=== PATIENT | male | born 1935 | race Caucasian/White ===

== ENCOUNTER 2023-10-04 08:43 | Outpatient (OUT) | payer MEDICARE, OTHER, SELFPAY ==
[2023-10-04 09:03] LABS: Basophils Percent Auto 0.2 % (0.2-2.0); Eosinophils Absolute Auto 0.1 10^3/uL (0.0-0.7); Eosinophils Percent Auto 1.3 % (0.9-7.0); Hematocrit 39.1 % (42.0-54.0); Hemoglobin 13.2 g/dL (14.0-18.0); Immature Granulocytes Abs Auto 0.01 10^3/uL (0.00-0.03); Immature Granulocytes Pct Auto 0.2 % (0.0-0.5); Lymphocytes Absolute Auto 1.3 10^3/uL (1.2-3.8); Lymphocytes Percent Auto 21.1 % (20.5-60.0); Mean Corpuscular HGB Conc 33.8 g/dL (29.9-35.2); Mean Corpuscular Hemoglobin 30.6 pg (25.9-34.0); Mean Corpuscular Volume 90.7 fL (80.0-94.0); Mean Platelet Volume 10.1 fL (9.5-13.5); Monocytes Absolute Auto 0.5 10^3/uL (0.3-0.8); Monocytes Percent Auto 8.6 % (1.7-12.0); Neutrophils Absolute Auto 4.2 10^3/uL (1.4-6.5); Neutrophils Percent Auto 68.6 % (43.0-75.0); Platelet Count 180 10^3/uL (150-450); Red Blood Count 4.31 10^6/uL (4.70-6.10); Red Cell Distribution Width 13.6 % (11.0-15.0); White Blood Count 6.2 10^3/uL (4.0-11.0)
--- NOTE | 2023-10-04 09:06 | CA_ITS ---
Patient Name: ESTEE EVANS MR#: [id number] : 1935 Exam Date: 10/04/2023 Ordering Doctor: DR Ramez De La Garza D.O. ECHOCARDIOGRAM REPORT PROCEDURE: CA ECHO DOPPLER COMPLETE INDICATIONS: Aortic valve stenosis COMPARISON: None. DESCRIPTION: COMPLETE ECHOCARDIOGRAM Real-time transthoracic echocardiography with 2D, M-mode, spectral and color flow Doppler performed. QUALITY: Technical quality was good. LEFT VENTRICLE: Normal chamber size. Moderate concentric left ventricular hypertrophy. Global left ventricular systolic function is normal. LV EF: Estimated left ventricular ejection fraction is 65-70%. DIASTOLIC: Grade 2 diastolic dysfunction. ATRIAL SEPTUM: LEFT ATRIUM: Moderate dilatation. RIGHT ATRIUM: Mild dilatation. RIGHT VENTRICLE: Normal chamber size. Normal right ventricular systolic function. TRICUSPID VALVE: Normal mobility and thickness. No stenosis with trivial regurgitation. Mild pulmonary hypertension. RVSP 39 mmHg MITRAL VALVE: Normal mobility and thickness. No evidence of mitral valve stenosis. Moderate mitral annular calcification. Mild mitral regurgitation. AORTIC VALVE: Normal trileaflet appearance. Moderately calcified aortic valve. Moderately diminished mobility. Doppler velocity suggests moderate aortic valve stenosis. DVI 0.3, ANTONIO 1.3 cm2, Vmax 3.4 m/s, Mean gradient 29 mmHg. Mild to moderate aortic regurgitation. AORTIC ROOT: Normal diameter and appearance. PULMONIC VALVE: Normal thickness and mobility. No stenosis. Trivial regurgitation. PERICARDIUM: No evidence of pericardial effusion. IVC: Collapses with inspirations. Normal size. PLEURA: CONCLUSION: 1. Moderate concentric left ventricular hypertrophy with normal systolic function. Estimated LVEF is 65 to 70%. 2. Normal right ventricular size and systolic function. 3. Grade 2 diastolic dysfunction. 4. Mild to moderate biatrial dilatation. 5. Moderate aortic valve stenosis with mild to moderate regurgitation. 6. Mildly elevated right-sided pressures. RVSP is 39 mmHg. Adult Echocardiography Procedure Report Left Ventricle LVEDD (3.7 - 5.6 cm): 4.57 cm LVESD (2.2 - 4.0 cm): 2.97 cm LVIVS thickness (0.6 - 1.2 cm): 1.49 cm LVPW thickness (0.5 - 1.0 cm): 1.35 cm e': 0.08 m/s E - e': 13.35 LVOT Max Gradient: 4.54 mm[Hg] LVOT Area (cm2): 1.07 m/s Peak Velocity (LVOT): 1.07 m/s Mean Velocity (LVOT): 0.76 m/s LVOT Diameter 2.31 cm Left Ventricular Ejection Fraction: 65-70 % Left Atrium LA Volume Index (2D A2C): 53.55 ml/m2 Left Atrium Systolic Dimension: 5.25 cm Mitral Valve MV E to A Ratio: 0.99, 0.86 Mitral Valve A-Wave Peak Velocity: 1.19 m/s Mitral Valve E-Wave Peak Velocity: 1.10 m/s Right Ventricle RV Internal Diastolic Dimension: 3.04 cm Aorta AO Root Diam: 3.11 cm Ascending Ao Diam: 3.29 cm Aortic Valve AoV Area (Peak Gagan): 1.40 cm2, 1.36 cm2 AoV Area (VTI): 1.55 cm2, 1.52 cm2 Deceleration Concho: 2.98 m/s2 Pressure Half-Time: 450.01 ms Peak Velocity(Antegrade Flow): 3.30 m/s, 2.90 m/s, 3.36 m/s Peak Gradient(Antegrade Flow): 43.44 mm[Hg], 33.59 mm[Hg], 45.29 mm[Hg] Mean Velocity(Antegrade Flow): 2.33 m/s, 1.96 m/s, 2.56 m/s Mean Gradient(Antegrade Flow): 24.57 mm[Hg], 17.65 mm[Hg], 28.52 mm[Hg] Velocity Time Integral: 85.56 cm, 69.42 cm, 95.83 cm Tricuspid Valve Peak Velocity (Regurgitant Flow): 2.66 m/s, 2.99 m/s, 2.61 m/s Pulmonic Valve Mean Gradient: 3.19 mm[Hg], 3.88 mm[Hg] Mean Velocity: 0.80 m/s, 0.90 m/s Peak Velocity: 1.35 m/s Peak Gradient: 7.06 mm[Hg], 7.50 mm[Hg] Right Atrium Right Atrium Systolic Pressure: 58.81 ml, 58.81 ml Dictated by: Omero Palomares M.D. on 10/05/2023 at 15:14 Approved by: Omero Palomares M.D. on 10/05/2023 at 15:19
--- NOTE | 2023-10-04 09:06 | US_ITS ---
[address] [address] Patient Name: ESTEE EVANS MRN: [id number] date: 1935 Sex: M Assigned Patient Location: LAB Current Patient Location: Accession/Order Number: [id number] Exam Date: 10/04/2023 09:10 Report Date: 10/05/2023 13:21 At the request of: GIORGI HAMPTON Procedure: US carotid duplex BI EXAMINATION: US carotid duplex BI HISTORY: Carotid Bruit COMPARISON: Ultrasound carotid artery bilateral 08/01/2019 TECHNIQUE: Duplex Doppler ultrasound analysis of carotid and vertebral arteries. . Bilateral carotid arterial duplex examination was performed using B-mode, color flow and spectral analysis. Carotid stenosis is reported according to validated velocity parameters, similar to NASCET criteria. FINDINGS: RIGHT CAROTID ARTERY: Marked atherosclerotic plaque within bulb and proximal ICA with 75% area reduction within the proximal ICA and 65% area reduction within the bulb. Subclavian: 293.61 cm/s / 13.98 cm/s CCA: Prox: 90.07 cm/s / 4.66 cm/s Mid: PSV: 77.13 cm/s cm/s EDV: 2.07 cm/s cm/s Distal: PSV: 64.19 cm/s cm/s EDV: 0 cm/s cm/s BULB: PSV: 113.37 cm/s cm/s EDV: 7.25 cm/s cm/s ICA: Prox: PSV: 121.41 cm/s cm/s EDV: 18.92 cm/s cm/s Mid: PSV: 97.34 cm/s cm/s EDV: cm/s 16.04 cm/s Distal: PSV: 61.08 cm/s cm/s EDV: 10.55 cm/s cm/s ECA: PSV: 79.74 cm/s cm/s EDV: 0 cm/s cm/s VERTEBRAL: PSV: 76.44 cm/s cm/s EDV: 11.64 cm/s cm/s ICA/CCA ratio: PSV: 1.3 EDV: 4.1 LEFT CAROTID ARTERY: Mild narrowing of proximal ICA with what appears to be an endovascular stent in place. Moderate-marked atherosclerotic narrowing of proximal external carotid artery. Subclavian: PSV: cm/s EDV: CCA: Prox: PSV: 74.82 cm/s cm/s EDV: 0 cm/s Mid: PSV: 69.38 cm/s cm/s EDV: 0 cm/s Distal: PSV: 79.23 cm/s cm/s EDV: 8.28 cm/s BULB: PSV: 91.06 cm/s cm/s EDV: 8.28 cm/s ICA: Prox: PSV: 260.05 cm/s cm/s EDV: 0 cm/s Mid: PSV: 171.98 cm/s cm/s EDV: 21.76 cm/s Distal: PSV: 113.40 cm/s cm/s EDV: 16.31 cm/s ECA: PSV: 123.94 cm/s cm/s EDV: 11.27 cm/s VERTEBRAL: PSV: 27.05 cm/s cm/s EDV: 0 cm/s ICA/CCA ratio: PSV: 3.3 EDV: 0.0 US/US carotid duplex BI IMPRESSION: 1. Marked atherosclerotic disease within right carotid bulb and proximal ICA with up to 75% area reduction. Flow velocity equates to 0-49% flow stenosis, but I suspect this is under calculated. 2. Mild atherosclerotic disease within left carotid bulb and ICA with interval stent placement since prior study. Spectral Doppler US Thresholds Stenosis (%) PSV (cm/sec) VICA/VCCA 0-49 <150 <2.5 50-69 150-225 2.5-4.0 >70 >225 >4.0 Electronically authenticated by: CYNTHIA MALLORY Date: 10/05/2023 13:21
[2023-10-04 09:31] LABS: Alanine Aminotransferase 19 U/L (16-63); Albumin Globulin Ratio 0.9; Albumin Level 3.7 g/dL (3.4-5.0); Alkaline Phosphatase 60 U/L (46-116); Anion Gap 13.7; Aspartate Amino Transferase 21 U/L (15-37); Bilirubin Total 2.3 mg/dL (0.2-1.0); Calcium 8.1 mg/dL (8.5-10.1); Carbon Dioxide 25.5 mmol/L (21.0-32.0); Chloride 103 mmol/L (98-107); Chol HDL Ratio 2.6; Cholesterol 117 mg/dL (<=200); Estimated GFR (African America >60 (>=60); Estimated GFR (Non-African Ame >60 (>=60); Globulin 3.9 g/dL; Glucose 104 mg/dL (74-106); HDL Cholesterol 45 mg/dL (40-60); LDL Cholesterol Calculated 53.6 mg/dL; Potassium 4.2 mmol/L (3.5-5.1); Sodium 138 mmol/L (136-145); Total Protein 7.6 g/dL (6.4-8.2); Triglycerides 92 mg/dL (<=150); VLDL CHOLESTEROL 18.4 mg/dL
== END 2023-10-04 08:44 | disposition home or self-care (01) ==
LOC: LAB 08:47
PROVIDERS: PCP Internal Medicine; Visit Provider Internal Medicine
DX: I35.0 Nonrheumatic aortic (valve) stenosis (principal); R09.89 Other specified symptoms and signs involving the circulatory and respiratory systems; I73.9 Peripheral vascular disease, unspecified; I10 Essential (primary) hypertension; E78.00 Pure hypercholesterolemia, unspecified
CPT/HCPCS: 36415; 80053; 80061; 85025; 93306; 93880

== ENCOUNTER 2023-10-19 09:53 | Outpatient (OUT) | payer MEDICARE, OTHER, SELFPAY ==
--- NOTE | 2023-10-19 09:54 | VEIN_ITS ---
[facility] [place] [address] Patient Name: ESTEE EVANS MRN: [id number] date: 1935 Sex: M Assigned Patient Location: Current Patient Location: Accession/Order Number: [id number] Exam Date: 10/19/2023 09:54 Report Date: 10/19/2023 11:54 At the request of: GIORGI HAMPTON Procedure: VC SEGMENTAL PRESSURES EXAM: VC SEGMENTAL PRESSURES HISTORY: R09.89 COMPARISON: None. FINDINGS: Segmental pressures presented as follows (right, left) in mmHg. Brachial: 148, 142 Upper thigh: 155, 125 Lower thigh: 92, 82 Calf: 65, 79 DPA: 53, 64 TRANSMISSION ASSEMBLER: 62/71 1st Toe: 79/83 LORENA: 0.42. 0.48 TBI: 0.53, 0.56 The ABIs suggests moderate arterial occlusive disease The TBI's suggests moderate arterial disease PVR waveforms: Right leg: Thigh: Mild ischemia Above knee: Moderate ischemia Below knee: Severe ischemia Right ankle: Severe ischemia Right metatarsal: Severe ischemia Left leg: Thigh: Moderate ischemia Above knee: Moderate ischemia Below knee: Moderate ischemia Right ankle: Severe ischemia Left metatarsal: Severe ischemia VEIN/VC SEGMENTAL PRESSURES IMPRESSION: Abnormal LORENA and TBI's suggest moderate arterial disease PVR waveform suggests moderate to severe bilateral ischemia Electronically authenticated by: MANDY RENTERIA Date: 10/19/2023 11:54
== END 2023-10-19 09:54 | disposition home or self-care (01) ==
LOC: VC 09:53
PROVIDERS: PCP Internal Medicine; Visit Provider Internal Medicine
DX: R09.89 Other specified symptoms and signs involving the circulatory and respiratory systems (principal); I35.0 Nonrheumatic aortic (valve) stenosis; I73.9 Peripheral vascular disease, unspecified
CPT/HCPCS: 93923